=== PATIENT | male | born 1970 | race Caucasian/White ===

== ENCOUNTER 2019-02-17 11:55 | Emergency (ER) | payer MEDICAID, SELFPAY ==
[2019-02-17 12:07] VITALS: BP 146/76; PULSE 100; RESP 18; TEMP 36.7; O2SAT 98
--- NOTE | 2019-02-17 12:19 | ED.GENADUL_ITS ---
Discharge Plan Disposition Patient Disposition: HOME Condition: Stable Discharge Details Chief Complaint: Abd Prob Clinical Impression: Abdominal pain, Constipation Primary Care Provider: Mickey Chowdary ED Provider: Lili Claros Home Meds and New Rx's Prescriptions: New methocarbamol 750 mg tablet 750 mg PO QID PRN (Reason: muscle spasm) Qty: 10 RF: 0 polyethylene glycol 3350 [Miralax] 17 gram powder in packet 17 gm PO DAILY PRN (Reason: constipation) Qty: 10 RF: 0 Continued lisinopril 40 MG tablet 40 mg PO DAILY Qty: 90 RF: 3 gabapentin 600 mg Tablet 1,200 mg PO BID RF: 0 loratadine [Claritin] 10 mg Tablet 10 mg PO DAILY RF: 0 Discharge Instructions Instructions: Constipation (ED), Abdominal Pain (ED) Additional Instructions: Drink plenty of fluids and get plenty of rest. Take the muscle relaxers as needed and directed for your abdominal pain. Alternate ice and heat to the affected area several times daily for 20 minutes at a time. Take the MiraLAX as needed and directed for constipation. If you have no relief with MiraLAX and [id number] stool softeners, you can try magnesium citrate, suppositories or enemas as directed. Follow-up with your primary care doctor in 2 days to reevaluation. Return immediately to the emergency department if you develop any worsening or new concerning symptoms. Discharge Data Discharge Physician: Lili Claros Medical Decision Making 48-year-old male with a history of right nephrectomy status post renal carcinoma with right flank hernia repair who presents with right-sided abdominal pain after lifting a heavy object a few days ago. Main concern for incarcerated or strangulate hernia, small bowel obstruction or other acute abdominal process. Will place an IV, bolus IV fluids, screening labs, CT abdomen and pelvis. Due to history of nephrectomy, will hold on IV and only do p.o. contrast. 1535 --labs and imaging reviewed and unremarkable. Normal white blood cell count. Normal electrolytes. Lipase normal. Urinalysis negative for infection. CT abdomen and pelvis negative for any acute process. Discussed with patient that based on his history, he may have sustained an abdominal wall muscle strain. As he cannot take NSAIDs, will send home with a prescription for muscle relaxers. He is instructed alternate ice and heat. He also admits to constipation for the past 4 days, will give a prescription for MiraLAX. He is instructed to purchase [id number] stool softeners and if no relief with MiraLAX, can try magnesium citrate, stool softeners or enema. He is instructed to follow-up with his primary care doctor for evaluation and to return here if worse. Medical Records Medical records reviewed: Yes I reviewed the patient's medical records. Imaging Data Radiologic Study: Radiologist's impression: ABDOMEN AND PELVIC CT: CT examination of the abdomen and pelvis was performed with oral contrast only. Images obtained through the lung bases are unremarkable. Liver, spleen and pancreas appear normal by noncontrast criteria. Gallbladder and bile ducts are CT normal. There is a hypertrophic left kidney and absent right kidney. Correlation requested regarding prior right nephrectomy. Right adrenal gland grossly unremarkable. Abdominal musculature is patulous but no true abdominal wall hernia is identified. No abdominal or pelvic adenopathy is seen. Appendix appears to have been surgically removed. No evidence of diverticulitis. CONCLUSION: 1. Absent right kidney, question prior right nephrectomy. 2. No acute process. Lab Data Lab results reviewed: Yes I reviewed the patient's lab results. Laboratory Tests Range/Units 02/17/19 02/17/19 02/17/19 13:30 13:30 14:20 WBC (4.4-10.8) k/cumm 6.72 RBC (4.50-6.00) m/cumm 5.57 Hgb (13.5-17.5) g/dL 15.8 Hct (40.0-50.0) % 48.6 MCV (80-95) fL 87.3 MCH (27.0-33.0) pg 28.4 MCHC (32.0-36.0) g/dL 32.5 RDW (11.8-14.1) % 13.9 Plt Count (130-400) x1000/uL 255 MPV (8.0-11.0) fL 11.8 H Immature Gran % 0.1 Neutrophils % 72.8 Lymphocytes % 18.9 Monocytes % 7.1 Eosinophils % 1.0 Basophils % 0.1 Absolute Neutrophils (1.2-6.7) k/cumm 4.88 Absolute Lymphocytes (1.2-3.4) k/cumm 1.27 Absolute Monocytes (0.11-0.7) k/cumm 0.48 Absolute Eosinophils (0.0-0.7) k/cumm 0.07 Absolute Basophils (0.0-0.2) k/cumm 0.01 Sodium (136-145) mmol/L 137 Potassium (3.5-5.1) mmol/L 4.3 Chloride (98-107) mmol/L 100 Carbon Dioxide (21.0-32.0) mmol/L 30.2 Anion Gap (3-11) mmol/L 6.8 BUN (7-18) mg/dL 14 Creatinine (0.70-1.30) mg/dL 1.18 Estimated GFR/1.73 m2 (mL/min/1.73m2) >= 60.00 Glucose (70-100) mg/dL 134 H Calcium (8.5-10.1) mg/dL 9.3 Total Bilirubin (0.2-1.0) mg/dL 0.2 AST (15-37) U/L 21 ALT (12-78) U/L 31 Alkaline Phosphatase (46-116) U/L 125 H Total Protein (6.4-8.2) g/dL 7.9 Albumin (3.4-5.0) g/dL 3.5 Lipase (73-393) U/L 169 Urine Color (Yellow) Yellow Urine Clarity (Clear) Clear Urine pH (5-8) 5.5 Ur Specific [place] (1.005-1.025) 1.010 Urine Protein (Negative) mg/dL Negative Urine Ketones (Negative) mg/dL Negative Urine Blood (Negative) Negative Urine Nitrite (Negative) Negative Urine Bilirubin (Negative) Negative Urine Urobilinogen (Up TO 0.2) EU/dL 0.2 Ur Leukocyte Esterase (Negative) Negative Urine Glucose (Negative) mg/dL Negative HPI General Mode of arrival: ambulatory . Date/Time Provider Initiated Documentation: 02/17/19 12:15 . Limitations to Documentation: no limitations . Information obtained by: patient . HPI Narrative: Patient is a 48-year-old male with a history of right nephrectomy due to renal cell carcinoma, anxiety, depression, obesity, appendectomy and right flank hernia repair in 2017 who presents with right-sided abdominal pain for the past 4 days. Patient states he was lifting a heavy plastic foot locker 4 days ago and developed sudden onset of right-sided abdominal pain. Patient states he was seen by his primary care doctor today for this complaint and was sent to the ER for evaluation to rule out possible hernia. He describes the pain as constant, sharp, stabbing with radiation to his right groin and testicle. States the pain is worse with moving and when eating. He has not taken any medication for pain today. He states his last bowel movement was 5 days ago which is unusual for him. He denies any fever, vomiting, urinary symptoms. Related Data Home Medications Medication Instructions Recorded Confirmed lisinopril 40 mg PO DAILY #90 tab-cap 11/17/15 02/17/19 gabapentin 1,200 mg PO BID 02/17/19 02/17/19 loratadine [Claritin] 10 mg PO DAILY 02/17/19 02/17/19 methocarbamol 750 mg PO QID PRN #10 tab 02/17/19 polyethylene glycol 3350 [Miralax] 17 gm PO DAILY PRN #10 each 02/17/19 Previous Rx's Medication Instructions Recorded methocarbamol 750 mg PO QID PRN #10 tab 02/17/19 polyethylene glycol 3350 [Miralax] 17 gm PO DAILY PRN #10 each 02/17/19 Allergies Allergy/AdvReac Type Severity Reaction Status Date / Time environmental Allergy Intermediate Uncoded 02/17/19 12:10 General Stated Complaint: Abd Prob LILIYA: 3 Review of Systems Review of Systems All systems reviewed & are unremarkable except as noted in HPI and below Constitutional Reports as per HPI, Denies chills and Denies fever(s) Eyes Denies blurry vision ENT Denies dizziness, Denies sore throat and Denies throat swelling Cardiovascular Denies chest pain and Denies dyspnea Respiratory Denies cough and Denies dyspnea Gastrointestinal Reports abdominal pain, Denies diarrhea and Denies vomiting Genitourinary Denies hematuria and Denies dysuria Musculoskeletal Denies back pain and Denies numbness Integumentary/Breasts Denies lesions and Denies rash Neurologic Denies dizziness, Denies focal weakness and Denies numbness Allergic/Immunologic Denies throat swelling PFSH Medical History Anxiety (Chronic) Depression (Chronic) Obesity (Chronic) Renal cell carcinoma (Chronic) Surgical History History of appendectomy (Chronic) History of right nephrectomy (Chronic) Hernia Repair, Incisional Family History Mother Depression Heart disease Father Essential hypertension Brother PTSD (post-traumatic stress disorder) Brother No problems noted. Grandfather Essential hypertension Heart disease Cancer Grandfather Essential hypertension Heart disease Cancer Grandmother Essential hypertension Cancer Grandmother No problems noted. Son No problems noted. Son No problems noted. Daughter Depression Daughter No problems noted. Daughter No problems noted. Social History Smoking/Tobacco Use Status: Current every day Tobacco Type: smokeless tobacco Alcohol Intake: never Drug use: Never Substance use type: does not use Do you feel safe at home: Yes Do you feel safe in your relationship?: Yes Exam Const General: cooperative, healthy appearing and no acute distress HENMT Head: normal to inspection Face and sinus: normal facial exam Eyes General: appearance normal, both eyes and all related structures Pupils: PERRL EOM: EOM intact bilaterally Neck Neck: normal visual inspection and No submandibular swelling Lymphatic: no lymphadenopathy noted Chest Chest: normal inspection of the chest and no tenderness Resp Effort & Inspection: normal respiratory effort and able to speak in complete sentences Auscultation: clear to auscultation bilaterally Cardio Rate: regular rate Rhythm: regular rhythm GI Inspection: normal to inspection Palpation: soft, not firm, not rigid and tender (R side from RUQ down to RLQ) Auscultation: normal bowel sounds Male General Exam: Yes normal external exam Penis: normal penis Meatus: meatus normal Scrotum: scrotum normal Testes: normal, no testicular mass, no testicular swelling and no testicular tenderness Back/Spine/Pelvis Thoracic/Lumbar Spine: thoracic and lumbar spine normal to inspection Pelvis: no pain with anterior-posterior compression Skin General skin exam: no rashes or lesions noted Neuro General: alert, awake and oriented x3 Cognition: normal cognition Speech: speech normal Motor: muscle tone normal throughout Sensory Exam: no sensory deficits noted Extrem General: normal to inspection, full ROM, normal capillary refill, no calf tenderness bilaterally and no edema Psych Appearance: grossly normal Mental Status: mental status grossly normal Speech and Movement: speech and movement normal Affect: normal affect Course Vital Signs Temperature 98.1 F 02/17/19 12:07 Pulse 100 H 02/17/19 12:07 Respiratory Rate 18 02/17/19 12:07 Blood Pressure 146/76 H 02/17/19 12:07 Pulse Oximetry 98 02/17/19 12:07 Temperature 98.1 F 02/17/19 12:07 Temperature Source Temporal Artery Scan 02/17/19 12:07 Pulse 100 H 02/17/19 12:07 Respiratory Rate 18 02/17/19 12:07 Blood Pressure 146/76 H 02/17/19 12:07 Pulse Oximetry 98 02/17/19 12:07 Oxygen Delivery Method Room Air 02/17/19 12:07 Oxygen Flow Rate 0 02/17/19 12:07 Pain Level 7 02/17/19 12:07
--- NOTE | 2019-02-17 12:59 | DI.CT_ITS ---
SYMPTOM/DIAGNOSIS: RT SIDED ABD PAIN, ? HERNIA, H/O HERNIA, S/P LIFTING INJURY ABDOMEN AND PELVIC CT: CT examination of the abdomen and pelvis was performed with oral contrast only. Images obtained through the lung bases are unremarkable. Liver, spleen and pancreas appear normal by noncontrast criteria. Gallbladder and bile ducts are CT normal. There is a hypertrophic left kidney and absent right kidney. Correlation requested regarding prior right nephrectomy. Right adrenal gland grossly unremarkable. Abdominal musculature is patulous but no true abdominal wall hernia is identified. No abdominal or pelvic adenopathy is seen. Appendix appears to have been surgically removed. No evidence of diverticulitis. CONCLUSION: 1. Absent right kidney, question prior right nephrectomy. 2. No acute process.
[2019-02-17] MEDS: Omnipaque 350 MG/ML 50 ML BTL PO (13:11)
[2019-02-17] MEDS: Normal Saline 500 ML IV (13:30)
[2019-02-17 13:41] LABS: Abs Immature Grans 0.01 k/cumm (0.0-0.09); Absolute Basophil Count 0.01 k/cumm (0.0-0.2); Absolute Eosinophil Count 0.07 k/cumm (0.0-0.7); Absolute Lymphocyte Count 1.27 k/cumm (1.2-3.4); Absolute Monocyte Count 0.48 k/cumm (0.11-0.7); Absolute Neutrophil Count 4.88 k/cumm (1.2-6.7); Basophils % 0.1; HCT 48.6 % (40.0-50.0); HGB 15.8 g/dL (13.5-17.5); Immature Grans % 0.1; Lymphocytes % 18.9; Mean Corp. HGB Concentration 32.5 g/dL (32.0-36.0); Mean Corpuscular Hemoglobin 28.4 pg (27.0-33.0); Mean Corpuscular Volume 87.3 fL (80-95); Mean Platelet Volume 11.8 fL (8.0-11.0); Monocytes % 7.1; Neutrophils % 72.8; Platelet Count 255 x1000/uL (130-400); RBC 5.57 m/cumm (4.50-6.00); RBC Distribution Width 13.9 % (11.8-14.1); White Blood Cell Count 6.72 k/cumm (4.4-10.8)
[2019-02-17 13:59] LABS: ALT 31 U/L (12-78); AST 21 U/L (15-37); Albumin 3.5 g/dL (3.4-5.0); Alkaline Phosphatase 125 U/L (46-116); Anion Gap 6.8 mmol/L (3-11); BUN 14 mg/dL (7-18); Bilirubin, Total 0.2 mg/dL (0.2-1.0); CO2 30.2 mmol/L (21.0-32.0); CREATININE 1.18 mg/dL (0.70-1.30); Calcium 9.3 mg/dL (8.5-10.1); Chloride 100 mmol/L (98-107); Glucose 134 mg/dL (70-100); Lipase 169 U/L (73-393); Potassium 4.3 mmol/L (3.5-5.1); Sodium 137 mmol/L (136-145); Total Protein 7.9 g/dL (6.4-8.2)
[2019-02-17 14:37] LABS: Bilirubin Negative (Negative); Blood Negative (Negative); Clarity Clear (Clear); Glucose Negative (Negative); Ketones Negative (Negative); Leukocyte Esterase Negative (Negative); Nitrite Negative (Negative); Urobilinogen 0.2 EU/dL (Up TO 0.2); pH 5.5 (5-8)
[2019-02-17 15:20] VITALS: BP 120/81; PULSE 78; RESP 15; TEMP 36.9; O2SAT 98
[2019-02-17 15:53] VITALS: BP 124/79; PULSE 82; RESP 16; TEMP 37.3; O2SAT 96
== END 2019-02-17 15:56 | disposition home or self-care (01) ==
PROVIDERS: Emergency Provider Physician Assistant; PCP Family Medicine
DX: R10.9 Unspecified abdominal pain (principal); K59.00 Constipation, unspecified; Z90.5 Acquired absence of kidney
CPT/HCPCS: 36415; 80053; 83690; 96361; 96374; 99285; 74176; 81003; 85025; 99284; Q9967